=== PATIENT | female | born 1975 ===

== ENCOUNTER → 2020-12-09 09:54 | Outpatient (CLI) | payer MEDICARE, MEDICAID, SELFPAY ==
--- NOTE | ~2020-12-09 | MR_ITS ---
EXAMINATION: MR lumbar spine wo con DATE: 12/09/2020 10:31 INDICATION: Lumbar radiculopathy. TECHNIQUE: Magnetic resonance imaging (MRI) of the lumbar spine was performed without intravenous con trast. Sequences included sagittal T2-weighted FSE, sagittal T2-weighted FS FSE, sagittal T1-weighted FSE, and axial T2-weighted FSE. COMPARISON: None FINDINGS: There is 7 degrees dextrocurvature of lumbar spine. Vertebral body heights and intervertebr al disc heights are normal. The distal spinal cord signal intensity is normal. The conus medullaris i s at L1-L2. There are fibroids in the uterus. The following disc levels are specifically discussed: L1-L2: The disc does not extend beyond the endplate margin. There is mild bilateral facet joint osteo arthritis. There is no neural foraminal stenosis. There is no central canal stenosis. L2-L3: The disc does not extend beyond the endplate margin. There is mild bilateral facet joint osteo arthritis. There is no neural foraminal stenosis. There is no central canal stenosis. L3-L4: The disc does not extend beyond the endplate margin. There is mild bilateral facet joint osteo arthritis. There is no neural foraminal stenosis. There is no central canal stenosis. L4-L5: The disc is bulging and has an annular fissure. There is mild bilateral facet joint osteoarthr itis. There is mild right and moderate left neural foraminal stenosis. There is no central canal sten osis. L5-S1: The disc does not extend beyond the endplate margin. There is no facet joint osteoarthritis. T here is no neural foraminal stenosis. There is no central canal stenosis. IMPRESSION: 1. Moderate left neural foraminal stenosis at L4-L5. Otherwise mild lumbar spondylosis. 2. Uterine fibroids. Reviewed, dictated and finalized at location A. [facility] IMPRESSION: 1. Moderate left neural foraminal stenosis at L4-L5. Otherwise mild lumbar spon dylosis. 2. Uterine fibroids.
--- NOTE | ~2020-12-09 | XR_ITS ---
EXAMINATION: XR shoulder LT min 2V DATE: 12/09/2020 10:51 INDICATION: Left shoulder pain. TECHNIQUE: 4 views of left shoulder were obtained. COMPARISON: None. FINDINGS: Bone alignment is normal. No acute fracture. There is an old healed fracture involving midd le third of left clavicle. There is mild osteoarthritis of glenohumeral joint and acromioclavicular j oint. There is a 6 mm loose body in the biceps tendon sheath. IMPRESSION: 1. Mild polyarticular osteoarthritis. 2. 6 mm loose body in the biceps tendon sheath. Reviewed, dictated and finalized at location A. [facility]
== END ==
PROVIDERS: Visit Provider Nurse Practitioner Adult Health
DX: M25.512 Pain in left shoulder (principal); D25.9 Leiomyoma of uterus, unspecified; M47.27 Other spondylosis with radiculopathy, lumbosacral region; M48.07 Spinal stenosis, lumbosacral region; M19.012 Primary osteoarthritis, left shoulder; M24.011 Loose body in right shoulder
CPT/HCPCS: 72148; 73030